=== PATIENT | female | born 1990 | race Caucasian/White ===

== ENCOUNTER 2023-09-07 22:53 | Emergency (ER) | payer OTHER ==
[2023-09-07] MEDS ORDERED: Ketorolac Tromethamine 30 MG/ML VIAL ONE (23:13)
== END 2023-09-07 23:23 | disposition home or self-care (01) ==
LOC: CSHERS 22:53
DX: K04.7 Periapical abscess without sinus (principal)
CPT/HCPCS: 96372; 99283; J1885

== ENCOUNTER 2024-07-12 11:02 | Outpatient (CLI) | payer OTHER | END 2024-07-12 11:03 | disposition home or self-care (01) | LOC: CSHULT 11:02 | DX: R10.2 Pelvic and perineal pain (principal) | CPT/HCPCS: 76857 ==

== ENCOUNTER 2024-08-24 21:02 | Emergency (ER) | payer OTHER ==
[2024-08-24] MEDS ORDERED: Fluorescein Opthalmic Strip ONE (21:27)
[2024-08-24] MEDS ORDERED: Proparacaine 0.5% Opth 15 ML BOT ONE (21:28)
== END 2024-08-24 22:00 | disposition home or self-care (01) ==
LOC: CSHERS 21:02
DX: S05.02XA Injury of conjunctiva and corneal abrasion without foreign body, left eye, initial encounter (principal); F17.290 Nicotine dependence, other tobacco product, uncomplicated; W22.8XXA Striking against or struck by other objects, initial encounter
CPT/HCPCS: 99283